=== PATIENT | female | born 1965 | race Hispanic/Latino ===

== ENCOUNTER 2017-10-17 17:27 | Emergency (ER) | payer SELFPAY ==
[2017-10-17 18:02] LABS: #Eosinphils 0.2 thou/uL (0.0-0.7); #Lymphocytes 3.1 thou/uL (1.20-3.40); #Monocytes 0.5 thou/uL (0.11-0.59); #Neutrophils 4.9 thou/uL (1.40-6.50); %Basophils 0.5 % (0.0-1.0); %Eosinophils 1.7 % (0.0-10.0); %Lymphocytes 35.5 % (21.0-51.0); %Monocytes 5.5 % (0.0-10.0); %Neutrophils 56.7 % (42.0-75.0); Hemoglobin 14.9 g/dL (12.0-16.0); Mean Corpuscular HGB CONC 35.1 g/dL (32.0-36.0); Mean Corpuscular Hemoglobin 31.6 pg (27.0-31.0); Mean Platelet Volume 9.3 fL (7.4-10.4); Platelet Count 212 thou/uL (130-400); RBC Distribution Width 12.6 % (11.5-14.5); Red Blood Cell (RBC) Count 4.73 mill/uL (4.20-5.40); White Blood Cell (WBC) Count 8.7 thou/uL (4.8-10.8)
--- NOTE | 2017-10-17 18:03 | RAD ---
CHEST ONE VIEW 10/17/17 HISTORY: Chest pain. COMPARISON: None. FINDINGS: Lungs are clear. No pneumothorax or effusion. The cardiac silhouette and mediastinal contours are wit hin normal limits. IMPRESSION: No acute intrathoracic abnormality. POS: [facility]
[2017-10-17 18:22] LABS: CKMB 0.6 ng/mL (0-6.6); Troponin I Less than 0.010 ng/mL (< 0.028)
[2017-10-17 19:12] LABS: Chloride 104 mmol/L (98-107); Potassium 3.8 mmol/L (3.5-5.1); Sodium 139 mmol/L (136-145)
[2017-10-17 19:13] LABS: Calcium 9.1 mg/dL (7.8-10.44); Glucose 152 mg/dL (70-105)
[2017-10-17 19:14] LABS: Globulin 3.2 g/dL (2.4-3.5); Protein, Total 7.2 g/dL (6.0-8.3)
[2017-10-17 19:15] LABS: Anion Gap 15 mmol/L (10-20); Bilirubin, Total 0.3 mg/dL (0.2-1.2); Carbon Dioxide 24 mmol/L (22-29)
[2017-10-17 19:16] LABS: Alkaline Phosphatase 115 U/L (40-150)
[2017-10-17 19:17] LABS: Calc. Creatinine Clearance 0 mL/min (70-130); Estimated GFR-MDRD 76
[2017-10-17 19:18] LABS: BUN (Urea Nitrogen) 16 mg/dL (9.8-20.1)
[2017-10-17 19:19] LABS: AST (SGOT) 18 U/L (5-34)
[2017-10-17 19:20] LABS: ALT (SGPT) 17 U/L (8-55)
[2017-10-17] MEDS ORDERED: Morphine 4 MG/ML VIAL ONE (19:37)
[2017-10-17 21:27] LABS: Troponin I Less than 0.010 ng/mL (< 0.028)
[2017-10-17] MEDS ORDERED: Ketorolac Tromethamine 30 MG/ML VIAL ONE (21:33)
[2017-10-17] MEDS ORDERED: HYDROcodone/Acetaminophen 5/325 mg Tablet ONE (22:14)
--- NOTE | 2017-10-20 14:46 | EKG ---
Test Reason : Blood Pressure : / mmHG Vent. Rate : 084 BPM Atrial Rate : 084 BPM P-R Int : 144 ms QRS Dur : 090 ms QT Int : 382 ms P-R-T Axes : 050 028 026 degrees QTc Int : 451 ms Normal sinus rhythm Normal ECG No ST elevation/[place] Confirmed by ROSA ACEVES M.D. ([id number]), book or script editor MARY JO GONZALEZ ([id number]) on 10/20/2017 2:46:17 PM Referred By: Confirmed By:ROSA ACEVES M.D.
--- NOTE | 2017-10-20 14:47 | EKG ---
Test Reason : Blood Pressure : / mmHG Vent. Rate : 071 BPM Atrial Rate : 071 BPM P-R Int : 168 ms QRS Dur : 092 ms QT Int : 404 ms P-R-T Axes : 059 019 021 degrees QTc Int : 439 ms Normal sinus rhythm Normal ECG Confirmed by ROSA ACEVES M.D. ([id number]), photo editor MARY JO GONZALEZ ([id number]) on 10/20/2017 2:47:23 PM Referred By: Confirmed By:ROSA ACEVES M.D.
== END 2017-10-17 21:30 | disposition home or self-care (01) ==
LOC: ERS 17:27
DX: R07.89 Other chest pain (principal); E11.9 Type 2 diabetes mellitus without complications; F41.9 Anxiety disorder, unspecified; Z79.4 Long term (current) use of insulin; Z79.899 Other long term (current) drug therapy
CPT/HCPCS: 36415; 71045; 80053; 82553; 84484; 85025; 85379; 93005; 96361; 96374; 96375; J1885; J2270